=== PATIENT | female | born 1980 | race Caucasian/White ===

== ENCOUNTER 2018-02-17 18:35 | Emergency (ER) | payer BC ==
[2018-02-17 18:43] VITALS: BP 152/11
== END 2018-02-17 20:35 | disposition left against medical advice (07) ==
LOC: ED 18:35
DX: O20.9 Hemorrhage in early pregnancy, unspecified (principal); Z3A.01 Less than 8 weeks gestation of pregnancy; Z53.21 Procedure and treatment not carried out due to patient leaving prior to being seen by health care provider